=== PATIENT | female | born 1955 | race Hispanic/Latino ===

== ENCOUNTER 2017-05-27 22:46 | Emergency (ER) | payer MEDICARE ==
[2017-05-27 23:01] VITALS: BP 139/58
[2017-05-27 23:40] LABS: Basophils # (Auto) 0.1 K/mm3 (0.0-0.1); Basophils % (Auto) 1.2 % (0.0-1.8); Eosinophils # (Auto) 0.3 K/mm3 (0.0-0.4); Eosinophils % (Auto) 3.4 % (0.0-4.3); Hematocrit 39.5 % (30.3-42.9); Hemoglobin 13.3 gm/dl (10.1-14.3); Lymphocytes % (Auto) 22.9 % (13.4-35.0); Mean Corpuscular HGB Conc 34 % (30-34); Mean Corpuscular Hemoglobin 28 pg (28-32); Mean Corpuscular Volume 84 fl (79-97); Monocytes # (Auto) 0.7 K/mm3 (0.0-0.8); Monocytes % (Auto) 8.1 % (0.0-7.3); Platelet Count 221 K/mm3 (140-440); Red Blood Count 4.69 M/mm3 (3.65-5.03); Red Cell Distribution Width 14.4 % (13.2-15.2)
[2017-05-28 00:12] LABS: Bacteria,Urine 2+ /HPF (Negative); Bilirubin,Urine NEG (Negative); Blood,Urine LG (Negative); Calcium Oxalate Crystals,Urine 1+; Color,Urine Red (Yellow); Mucus,Urine FEW /HPF; Urobilinogen,Urine < 2.0 mg/dL (<2.0)
[2017-05-28 00:18] LABS: RBC,Urine > 182.0 /HPF (0.0-6.0); WBC,Urine > 182.0 /HPF (0.0-6.0)
== END 2017-05-28 07:49 | disposition left against medical advice (07) ==
LOC: ED 22:46
DX: N93.9 Abnormal uterine and vaginal bleeding, unspecified (principal); R42 Dizziness and giddiness; R10.2 Pelvic and perineal pain; Z53.21 Procedure and treatment not carried out due to patient leaving prior to being seen by health care provider
CPT/HCPCS: 36415; 81001; 84702; 85025; 86850; 86900; 86901

== ENCOUNTER 2017-09-21 07:42 | Emergency (ER) | payer MEDICARE ==
[2017-09-21 08:38] LABS: Basophils # (Auto) 0.1 K/mm3 (0.0-0.1); Eosinophils # (Auto) 0.1 K/mm3 (0.0-0.4); Eosinophils % (Auto) 1.1 % (0.0-4.3); Hematocrit 39.9 % (30.3-42.9); Hemoglobin 13.7 gm/dl (10.1-14.3); Lymphocytes # (Auto) 1.3 K/mm3 (1.2-5.4); Lymphocytes % (Auto) 11.1 % (13.4-35.0); Mean Corpuscular HGB Conc 34 % (30-34); Mean Corpuscular Hemoglobin 29 pg (28-32); Mean Corpuscular Volume 84 fl (79-97); Monocytes # (Auto) 0.7 K/mm3 (0.0-0.8); Monocytes % (Auto) 5.8 % (0.0-7.3); Platelet Count 199 K/mm3 (140-440); Red Blood Count 4.74 M/mm3 (3.65-5.03)
[2017-09-21 08:59] LABS: Alanine Aminotransferase 22 units/L (7-56); Albumin 3.7 g/dL (3.9-5); BUN/Creatinine Ratio 18; Blood Urea Nitrogen 16 mg/dL (7-17); Calcium 9.6 mg/dL (8.4-10.2); Hemolysis Index 6
--- NOTE | 2017-09-21 09:03 | Emergency Department Report ---
<JOSÉ ANTONIO CHANEL - Last Filed: 09/21/17 18:30> ED Dizziness HPI - General Chief Complaint: Dizziness Stated Complaint: DIZZINESS/WEAKNESS/N/V Time Seen by Provider: 09/21/17 08:22 - Related Data Home Medications Medication Instructions Recorded Confirmed Last Taken Metoprolol [Lopressor TAB] 50 mg PO BID 06/23/14 04/26/16 06/22/14 Simvastatin [Zocor TAB] 40 mg PO QHS 06/23/14 04/26/16 06/22/14 Meclizine [Antivert] 25 mg PO TID PRN 04/26/16 04/26/16 Unknown NIFEdipine XL [Procardia Xl] 30 mg PO QDAY 04/26/16 04/26/16 Unknown Saxagliptin HCl [Onglyza] 5 mg PO DAILY 04/26/16 04/26/16 Unknown Previous Rx's Medication Instructions Recorded Last Taken Type Aspirin EC [Aspirin Enteric Coated 325 mg PO QDAY #30 tablet. 04/28/16 Unknown Rx TAB] Ciprofloxacin HCl [Ciprofloxacin 500 mg PO BID #10 tablet 04/28/16 Unknown Rx TAB] Diazepam Tab [Valium] 5 mg PO TID PRN #21 tablet 09/21/17 Unknown Rx Allergies Allergy/AdvReac Type Severity Reaction Status Date / Time Iodinated Contrast- Oral and Allergy Hives Verified 06/23/14 10:57 IV Dye [Iodinated Contrast Media - IV Dye] meperidine HCl [From Demerol] Allergy Unknown Verified 06/23/14 10:57 Penicillins Allergy Unknown Verified 03/02/14 14:57 ED Review of Systems ROS: Stated complaint: DIZZINESS/WEAKNESS/N/V Other details as noted in HPI ED Past Medical Hx - Medications Home Medications: Home Medications Medication Instructions Recorded Confirmed Last Taken Type Metoprolol [Lopressor TAB] 50 mg PO BID 06/23/14 04/26/16 06/22/14 History Simvastatin [Zocor TAB] 40 mg PO QHS 06/23/14 04/26/16 06/22/14 History Meclizine [Antivert] 25 mg PO TID PRN 04/26/16 04/26/16 Unknown History NIFEdipine XL [Procardia Xl] 30 mg PO QDAY 04/26/16 04/26/16 Unknown History Saxagliptin HCl [Onglyza] 5 mg PO DAILY 04/26/16 04/26/16 Unknown History Aspirin EC [Aspirin Enteric Coated 325 mg PO QDAY #30 tablet. 04/28/16 Unknown Rx TAB] Ciprofloxacin HCl [Ciprofloxacin 500 mg PO BID #10 tablet 04/28/16 Unknown Rx TAB] Diazepam Tab [Valium] 5 mg PO TID PRN #21 tablet 09/21/17 Unknown Rx ED Course Vital Signs 09/21/17 09/21/17 09/21/17 08:26 08:30 08:38 Temperature 98.6 F Pulse Rate 84 81 81 Respiratory 15 14 18 Rate Blood Pressure 133/67 Blood Pressure 133/67 [Right] O2 Sat by Pulse 95 97 97 Oximetry 09/21/17 09/21/17 09/21/17 08:46 09:00 09:16 Temperature Pulse Rate 87 78 77 Respiratory 11 L 15 16 Rate Blood Pressure 141/75 139/64 133/67 Blood Pressure [Right] O2 Sat by Pulse 97 97 98 Oximetry 09/21/17 09/21/17 09/21/17 09:30 09:49 16:59 Temperature 97.8 F Pulse Rate 78 81 Respiratory 14 17 17 Rate Blood Pressure 133/67 Blood Pressure 148/76 [Right] O2 Sat by Pulse 94 98 96 Oximetry ED Medical Decision Making - Lab Data Result diagrams: 09/21/17 08:14 09/21/17 16:56 - Medical Decision Making Addendum by José Antonio Chanel M.D. After return of the patient's MRI I once again spoke to her and did a physical exam. Patient states she has a history of vertigo and has not had it this bad in quite some time. She states the dizziness is worse when she is standing and moving her head quickly but it does resolve she denies any dizziness with sitting still. On physical exam the patient has a normal neuro exam including cerebellar exam which included a finger-nose, [id number], rapid hand movements. I was able to re-create her symptoms or rapid head movement and rapid eye movement. At this time I discussed with patient that we give her value was started on meclizine for dizziness and will follow with her primary care physician Critical care attestation.: If time is entered above; I have spent that time in minutes in the direct care of this critically ill patient, excluding procedure time. ED Disposition Clinical Impression: Diabetes mellitus type 2 in obese, Dizziness, Vertigo, Hypomagnesemia, Electrolyte imbalance, Hypokalemia UTI (urinary tract infection) Qualifiers: Urinary tract infection type: acute cystitis Hematuria presence: without hematuria Qualified Code(s): N30.00 - Acute cystitis without hematuria Disposition: TO HOME OR SELFCARE Is pt being admited?: No Does the pt Need Aspirin: No Condition: Stable Instructions: Vertigo (ED), Diabetes Mellitus Type 2 in Adults (ED) Prescriptions: Diazepam Tab [Valium] 5 mg PO TID PRN #21 tablet PRN Reason: Vertigo Referrals: PRIMARY CARE, [Primary Care Provider] - 3-5 Days CRESCENCIO DOMINGUEZ MD [Staff Physician] - 3-5 Days CRISTIAN TRAN MD [Referring] - 3-5 Days Time of Disposition: 18:34 <DC CALVILLO - Last Filed: 09/22/17 17:02> ED Dizziness HPI - General Source: patient, EMS Mode of arrival: Stretcher Limitations: Physical Limitation - History of Present Illness Complaint: dizziness, lightheadedness, near syncope -: Sudden, This morning Timing: sudden onset Description: sense of movement, "room spinning", lightheadedness, off-balance History of Same: Yes History of Trauma: No Severity: severe Improves With: remaining still Worsens With: movement Associated Symptoms: denies: chest pain, confusion ED Review of Systems Comment: All other systems reviewed and negative Constitutional: denies: chills, fever Eyes: denies: eye pain, eye discharge ENT: denies: ear pain, dental pain Respiratory: denies: cough, shortness of breath Cardiovascular: denies: chest pain, palpitations, dyspnea on exertion Endocrine: no symptoms reported Gastrointestinal: nausea. denies: abdominal pain, vomiting, diarrhea, constipation Genitourinary: denies: urgency, dysuria, frequency Musculoskeletal: denies: back pain, joint swelling Skin: denies: rash, lesions Neurological: abnormal gait. denies: headache, weakness, numbness, paresthesias Psychiatric: denies: anxiety, depression, auditory hallucinations Hematological/Lymphatic: denies: easy bleeding, easy bruising ED Past Medical Hx - Past Medical History Hx Hypertension: Yes Hx Congestive Heart Failure: No Hx Diabetes: Yes Hx Kidney Stones: Yes Hx Asthma: No Hx COPD: No Additional medical history: High cholesterol. Psoriasis. - Surgical History Hx Cholecystectomy: Yes Additional Surgical History: Gall bladder removed, 1994,Partial colon removal 2004, Gall bladder removed. Kidney stones : Two surgeries, and two lithotripsy for the left kidney. Was told also has kidney stones in right kidney, beginning [id number] to 1984 - Social History Smoking Status: Former Smoker Substance Use Type: None ED Physical Exam - General Limitations: No Limitations General appearance: alert, in no apparent distress - Head Head exam: Present: atraumatic, normocephalic, normal inspection - Eye Eye exam: Present: normal appearance, PERRL, EOMI Pupils: Present: normal accommodation - ENT ENT exam: Present: normal exam, normal orophraynx, mucous membranes moist - Neck Neck exam: Present: normal inspection, full ROM. Absent: tenderness - Respiratory Respiratory exam: Present: normal lung sounds bilaterally. Absent: respiratory distress, wheezes, rales, rhonchi - Cardiovascular Cardiovascular Exam: Absent: regular rate, normal rhythm, normal heart sounds - GI/Abdominal GI/Abdominal exam: Present: soft, normal bowel sounds. Absent: distended, tenderness, guarding, rebound - Extremities Exam Extremities exam: Present: normal inspection, full ROM, normal capillary refill - Back Exam Back exam: Present: normal inspection, full ROM. Absent: tenderness - Neurological Exam Neurological exam: Present: alert, oriented X3, CN II-XII intact - Psychiatric Psychiatric exam: Present: normal affect, normal mood - Skin Skin exam: Present: warm, dry, intact, normal color ED Course - Reevaluation(s) Reevaluation #1: 09/21/17 16:33 Patient care was transferred to Dr. Chanel at shift change. Patient is pending an MRI of the brain without contrast. Patient to be reevaluated after the MRI resulted prior to disposition by Dr. Chanel. ED Medical Decision Making - Lab Data Result diagrams: 09/21/17 08:14 09/21/17 16:56 - EKG Data -: EKG Interpreted by Vt EKG shows normal: sinus rhythm Rate: normal (81) - EKG Data Interpretation: nonspecific ST-T wave brett, other (Prolonged QT, Low voltage QRS , No STEMI.) - Radiology Data Radiology results: report reviewed, image reviewed - Medical Decision Making Vertigo. Dehydration. Dizziness. uncontrolled Diabetes. ED Disposition Does the pt Need Aspirin: No
[2017-09-21] MEDS ORDERED: ANTIVERT PO ONE (09:04)
[2017-09-21] MEDS ORDERED: NACL 0.9% 1000 ML 1,000 ML IV ONE ×2 (09:04)
[2017-09-21] MEDS ORDERED: ZOFRAN IV ONE (09:04)
--- NOTE | 2017-09-21 09:27 | XRay Report ---
Single view chest: History: Shortness of breath. Findings: Suspected borderline cardiomegaly. Trachea is midline. No consolidation, pneumothorax or pleural effusion. Impression: No acute cardiopulmonary findings.
[2017-09-21 09:53] LABS: INR 1.03 (0.87-1.13)
[2017-09-21 09:54] LABS: Partial Thromboplastin Time 25.2 Sec. (24.2-36.6)
--- NOTE | 2017-09-21 10:06 | Cat Scan Report ---
CT scan of the without IV contrast: History: Dizziness, history of TIA. Findings: Ventricles are normal in size and midline in location. No evidence of acute ischemia, hemorrhage or mass. No extra axial fluid collection. Normal brainstem and cerebellum. Normal visualized sinuses and mastoid air cells. Impression: No acute intracranial abnormality.
[2017-09-21] MEDS ORDERED: K-DUR PO ONE (11:04)
[2017-09-21] MEDS ORDERED: MAGNESIUM SULFATE 2GM/50ML 2 GM/50 ML BAG IV ONE (11:04)
[2017-09-21 11:10] LABS: Bacteria,Urine 1+ /HPF (Negative); Bilirubin,Urine NEG (Negative); Blood,Urine LG (Negative); Calcium Oxalate Crystals,Urine FEW; Color,Urine Yellow (Yellow); Mucus,Urine FEW /HPF; Protein,Urine <15 mg/dL mg/dL (Negative); Urobilinogen,Urine < 2.0 mg/dL (<2.0)
[2017-09-21] MEDS ORDERED: MAGNESIUM SULFATE 2 GM in NACL 0.9% 50 ML IV ONE (12:00)
[2017-09-21] MEDS ORDERED: LEVAQUIN 750MG/150ML 750 MG/150 ML BAG IV ONE (12:34)
[2017-09-21 17:00] VITALS: BP 148/76
--- NOTE | 2017-09-21 17:26 | Magnetic Resonance Report ---
FINAL REPORT PROCEDURE: MR BRAIN WO CON TECHNIQUE: Magnetic resonance imaging of the brain was performed without contrast material. HISTORY: Unsteady Gait COMPARISON: No prior studies are available for comparison. FINDINGS: There is no evidence of intracranial hemorrhage. No parenchymal hemorrhage, mass lesions or mass effect are identified. The ventricles are normal size and are midline. No abnormal extra-axial fluid collections or masses are seen. There is very mild increased T2 signal in the periventricular white matter and minimally in the deep white matter without mass effect. No abnormal areas of restricted diffusion are seen. The appearance is consistent with minimal gliosis probably on the basis of microvascular disease or white matter changes of aging. The corpus callosum, the region of the pituitary fossa in the foramina magnum show no abnormalities. The paranasal sinuses and the mastoid air cells are clear. IMPRESSION: No acute intracranial abnormalities are identified. Minimal gliosis suspected. No other abnormalities are seen.
[2017-09-21 17:39] LABS: BUN/Creatinine Ratio 18; Blood Urea Nitrogen 11 mg/dL (7-17); Calcium 8.5 mg/dL (8.4-10.2); Hemolysis Index 4
[2017-09-21] MEDS ORDERED: VALIUM PO ONE (18:34)
== END 2017-09-21 18:50 | disposition home or self-care (01) ==
LOC: ED 07:42
DX: E87.8 Other disorders of electrolyte and fluid balance, not elsewhere classified (principal); E86.0 Dehydration; E11.9 Type 2 diabetes mellitus without complications; R42 Dizziness and giddiness; I10 Essential (primary) hypertension; E78.00 Pure hypercholesterolemia, unspecified; E83.42 Hypomagnesemia; E87.6 Hypokalemia; Z90.49 Acquired absence of other specified parts of digestive tract; Z87.442 Personal history of urinary calculi; Z87.891 Personal history of nicotine dependence; Z79.82 Long term (current) use of aspirin; Z88.0 Allergy status to penicillin; Z91.041 Radiographic dye allergy status
CPT/HCPCS: 36415; 51701; 70450; 70551; 71045; 80048; 80053; 81001; 83735; 83880; 84443; 84484; 85025; 85610; 85730; 87086; 93005; 93010; 96361; 96365; 96366; 96368; 99285; J1956; J2405; J3475; J7030